=== PATIENT | female | born 1945 | race Caucasian/White ===

== ENCOUNTER → 2017-11-28 | Outpatient (CLI) | payer MEDICARE ==
[~2017-11-28] MED LIST: AMIT25 PO; AMIT75; AMLO5 PO; Ativan1 MG SL; Azor 10-20 MG1 EACH; Bactrim Ds Tab1 EACH PO; CALCA500CH PO; CALCIUM 1,0001 EACH PO; CEPH500 PO; CONEST.625 PO; CONEST.9; CYCL10; CYCL10 PO; DICL75ER PO; EPIPEN 2-P0.3 MG/0.3 IM; GABA600; HYDACE5 PO; IPRA.03NI; ISOD40ER; ISOD40ER PO; ISOMON30 PO; ISOSORBIDE MONONITRATE PO; LANS15EC PO; LAVAP17G PO; LEVO750 PO; LORA1 PO; METCAR500; METCAR500 PO; METO25 PO; MYRBETRIQ50 MG PO; NAPR220 PO; Nitrostat0.4 MG SL; OXYACE5T PO; PROACE100 PO; Prinivil10 MG PO; Pyridium200 MG PO; SIMV10 PO; Simvastatin20 MG PO; TOPI25 PO; TOPI50 PO; TRAM50; ZOLP5; ZOLP5 PO
== END | disposition home or self-care (01) ==
LOC: LAB 15:00
DX: R30.9 Painful micturition, unspecified (principal)
CPT/HCPCS: 87077; 87086; 87186

== ENCOUNTER 2017-11-30 12:47 | Emergency (ER) | payer MEDICARE ==
[~2017-11-30] VITALS: Ht 172.7 cm; Wt 73.5 kg
[~2017-11-30 12:47] MED LIST changes: -Bactrim Ds Tab1 EACH PO; -CONEST.625 PO; -GABA600; -ISOD40ER; -ISOD40ER PO; -TRAM50; -ZOLP5
[2017-11-30 15:25] LABS: BASOPHILS ABSOLUTE AUTO 0.04 K/mm3 (0.00-0.23); BASOPHILS PERCENT AUTO 1 % (0-2); EOSINOPHILS ABSOLUTE AUTO 0.36 K/mm3 (0.00-0.68); EOSINOPHILS PERCENT AUTO 5 % (0-6); Hematocrit 41.4 % (33.0-51.0); Hemoglobin 14.1 g/dL (11.5-16.0); IMMATURE GRAN ABSOLUTE AUTO 0.01 K/mm3 (0.00-0.10); IMMATURE GRAN PERCENT AUTO 0 % (0-1); LYMPHOCYTES ABSOLUTE AUTO 1.76 K/mm3 (0.84-5.20); LYMPHOCYTES PERCENT AUTO 25 % (21-46); MONOCYTES ABSOLUTE AUTO 0.57 K/mm3 (0.16-1.47); MONOCYTES PERCENT AUTO 8 % (4-13); Mean Corpuscular HGB 31.4 pg (26.0-34.0); Mean Corpuscular HGB Conc 34.1 g/dL (31.5-36.5); Mean Corpuscular Volume 92 fL (80-100); NEUTROPHILS ABSOLUTE AUTO 4.22 K/mm3 (1.96-9.15); NEUTROPHILS PERCENT AUTO 61 % (41-73); Platelet Count 192 K/mm3 (150-400); RDW Coefficient Variation 11.9 % (11.7-14.2); RDW Standard Deviation 40.4 fL (35.1-46.3); Red Blood Cell Count 4.49 M/mm3 (3.80-5.20); White Blood Cell Count 6.96 K/mm3 (4.00-11.30)
[2017-11-30 15:48] LABS: Alanine Aminotransfer (ALT/SGP 23 U/L (12-78); Albumin, Blood 3.4 g/dL (3.4-5.0); Albumin/Globulin Ratio 0.9 (0.8-1.8); Alk Phos 91 U/L (50-136); Anion Gap 6 mmol/L (6-16); Aspartate Aminotrans (AST/SGOT 24 U/L (12-37); Bilirubin, Total 0.6 mg/dL (0.1-1.0); Blood Urea Nitrogen 17 mg/dL (8-24); Bun/Creatinine Ratio 21.4 (12.0-20.0); CO2, Blood 27 mmol/L (21-32); Calcium, Blood 8.6 mg/dL (8.5-10.1); Chloride, Blood 106 mmol/L (98-108); Globulin, Blood 3.8 g/dL (2.2-4.0); Glomerular Filtration Rate >60 (60-); Glucose, Blood 84 mg/dL (70-99); Potassium, Blood 4.1 mmol/L (3.5-5.5); Sodium, Blood 139 mmol/L (136-145); Total Protein, Blood 7.2 g/dL (6.4-8.2)
[2017-11-30] MEDS ORDERED: Bactrim Ds Tab1 EACH PO (16:01)
== END 2017-11-30 17:17 | disposition home or self-care (01) ==
LOC: ER 12:47
PROVIDERS: Emergency Medicine
DX: N39.0 Urinary tract infection, site not specified (principal); M79.604 Pain in right leg; Z91.038 Other insect allergy status; Z88.1 Allergy status to other antibiotic agents; Z88.5 Allergy status to narcotic agent; Z88.8 Allergy status to other drugs, medicaments and biological substances; Z91.048 Other nonmedicinal substance allergy status; Z79.899 Other long term (current) drug therapy; Z87.891 Personal history of nicotine dependence
CPT/HCPCS: 36415; 71046; 80053; 83605; 85025; 87040; 96361; 96374; 99283; J0696; J7030

== ENCOUNTER 2018-01-15 09:05 | Day surgery (SDC) | payer MEDICARE ==
[~2018-01-15] VITALS: Ht 172.7 cm; Wt 73.5 kg
[~2018-01-15 09:05] MED LIST changes: +Bactrim Ds Tab1 EACH PO
[2018-01-15] MEDS ORDERED: GABA600 (11:41)
[2018-01-15] MEDS ORDERED: ISOD40ER (11:41)
[2018-01-15] MEDS ORDERED: ZOLP5 (11:41)
[2018-01-15] MEDS ORDERED: TRAM50 (11:43)
== END 2018-01-15 13:10 | disposition home or self-care (01) ==
LOC: ORSCSDS 09:05
PROVIDERS: Surgery
PROC: 0DB48ZX Excision of Esophagogastric Junction, Via Natural or Artificial Opening Endoscopic, Diagnostic (ICD-10-PCS; principal; 2018-01-15 10:30)
PROC: 0DB68ZX Excision of Stomach, Via Natural or Artificial Opening Endoscopic, Diagnostic (ICD-10-PCS; principal; 2018-01-15 10:30)
DX: K22.70 Barrett's esophagus without dysplasia (principal); Z80.0 Family history of malignant neoplasm of digestive organs; I10 Essential (primary) hypertension; E78.5 Hyperlipidemia, unspecified; I25.10 Atherosclerotic heart disease of native coronary artery without angina pectoris; K21.9 Gastro-esophageal reflux disease without esophagitis; M79.7 Fibromyalgia; Z87.891 Personal history of nicotine dependence; Z79.899 Other long term (current) drug therapy
CPT/HCPCS: 88305; 88342; J7120

== ENCOUNTER 2018-03-27 06:18 | Day surgery (SDC) | payer MEDICARE ==
[~2018-03-27] VITALS: Ht 172.7 cm; Wt 71.7 kg
[~2018-03-27 06:18] MED LIST changes: +GABA600; +ISOD40ER; +TRAM50; +ZOLP5
[2018-03-27] MEDS ORDERED: CONEST.625 PO (06:55)
[2018-03-27] MEDS ORDERED: ISOD40ER PO (06:57)
== END 2018-03-27 10:30 | disposition home or self-care (01) ==
LOC: ORSCSDS 06:18
PROVIDERS: Podiatrist Foot & Ankle Surgery
PROC: 0SQP0ZZ Repair Right Toe Phalangeal Joint, Open Approach (ICD-10-PCS; principal; 2018-03-27 07:30)
DX: M20.61 Acquired deformities of toe(s), unspecified, right foot (principal); I10 Essential (primary) hypertension; K21.9 Gastro-esophageal reflux disease without esophagitis; M79.7 Fibromyalgia; Z79.899 Other long term (current) drug therapy
CPT/HCPCS: 93005; 93010; J0171; J0690; J1100; J1885; J2250; J2405; J7120

== ENCOUNTER 2018-09-30 15:12 | Emergency (ER) | payer MEDICARE ==
[~2018-09-30] VITALS: Ht 172.7 cm; Wt 74.8 kg
[~2018-09-30 15:12] MED LIST changes: +CONEST.625 PO; -GABA600; +GABA600 PO; +ISOD40ER PO; -TRAM50; +TRAM50 PO
[2018-09-30] MEDS ORDERED: NITR.4SL SL (15:28)
[2018-09-30 16:29] LABS: BASOPHILS ABSOLUTE AUTO 0.04 K/mm3 (0.00-0.23); BASOPHILS PERCENT AUTO 1 % (0-2); EOSINOPHILS ABSOLUTE AUTO 0.17 K/mm3 (0.00-0.68); EOSINOPHILS PERCENT AUTO 2 % (0-6); Hematocrit 46.2 % (33.0-51.0); IMMATURE GRAN ABSOLUTE AUTO 0.01 K/mm3 (0.00-0.10); IMMATURE GRAN PERCENT AUTO 0 % (0-1); LYMPHOCYTES ABSOLUTE AUTO 1.16 K/mm3 (0.84-5.20); LYMPHOCYTES PERCENT AUTO 13 % (21-46); MONOCYTES ABSOLUTE AUTO 0.76 K/mm3 (0.16-1.47); MONOCYTES PERCENT AUTO 9 % (4-13); Mean Corpuscular HGB 32.1 pg (26.0-34.0); Mean Corpuscular HGB Conc 34.6 g/dL (31.5-36.5); Mean Corpuscular Volume 93 fL (80-100); Mean Platelet Volume 10.6 fL (9.1-12.4); NEUTROPHILS PERCENT AUTO 76 % (41-73); Platelet Count 215 K/mm3 (150-400); RDW Coefficient Variation 11.8 % (11.7-14.2); RDW Standard Deviation 40.8 fL (35.1-46.3); Red Blood Cell Count 4.98 M/mm3 (3.80-5.20); White Blood Cell Count 8.84 K/mm3 (4.00-11.30)
[2018-09-30 16:47] LABS: Alanine Aminotransfer (ALT/SGP 16 U/L (12-78); Albumin, Blood 3.5 g/dL (3.4-5.0); Albumin/Globulin Ratio 0.9 (0.8-1.8); Alk Phos 99 U/L (50-136); Anion Gap 6 mmol/L (6-16); Aspartate Aminotrans (AST/SGOT 17 U/L (12-37); Bilirubin, Total 0.7 mg/dL (0.1-1.0); Blood Urea Nitrogen 15 mg/dL (8-24); Bun/Creatinine Ratio 18.5 (12.0-20.0); CO2, Blood 27 mmol/L (21-32); Calcium, Blood 8.5 mg/dL (8.5-10.1); Chloride, Blood 108 mmol/L (98-108); Creatinine, Blood 0.81 mg/dL (0.40-1.00); Globulin, Blood 3.9 g/dL (2.2-4.0); Glomerular Filtration Rate >60 (60-); Glucose, Blood 111 mg/dL (70-99); Potassium, Blood 3.9 mmol/L (3.5-5.5); Sodium, Blood 141 mmol/L (136-145); Total Protein, Blood 7.4 g/dL (6.4-8.2)
[2018-09-30] MEDS ORDERED: BELPTAB PO (17:24)
[2018-09-30] MEDS ORDERED: Zofran8 MG PO (17:24)
== END 2018-09-30 17:45 | disposition home or self-care (01) ==
LOC: ER 15:12
PROVIDERS: Emergency Medicine
DX: K92.1 Melena (principal); R11.10 Vomiting, unspecified; R19.7 Diarrhea, unspecified; Z88.8 Allergy status to other drugs, medicaments and biological substances; Z88.6 Allergy status to analgesic agent; Z91.030 Bee allergy status; Z88.5 Allergy status to narcotic agent; Z79.899 Other long term (current) drug therapy
CPT/HCPCS: 36415; 80053; 83690; 85025; 96361; 96372; 96374; 96375; 99284-25; J0500; J2405; J3010; J7120

== ENCOUNTER → 2018-11-04 | Outpatient (CLI) | payer MEDICARE ==
[~2018-11-04] MED LIST changes: +BELPTAB PO; +NITR.4SL SL; +Zofran8 MG PO
== END | disposition home or self-care (01) ==
LOC: LAB 18:04 → LAB SHORT 18:04
DX: R30.9 Painful micturition, unspecified (principal)
CPT/HCPCS: 87077; 87086; 87186

== ENCOUNTER 2020-03-16 07:54 | Day surgery (SDC) | payer MEDICARE, OTHER ==
[~2020-03-16 07:54] MED LIST changes: +Amlodipine Besy10 MG PO; +Isosorbide Mono60 MG PO; +MYRBETRIQ50 MG; +Robaxin-750750 MG PO
== END 2020-03-16 10:15 | disposition home or self-care (01) ==
LOC: ORSCSDS 07:54
PROVIDERS: Surgery
PROC: 0DB78ZX Excision of Stomach, Pylorus, Via Natural or Artificial Opening Endoscopic, Diagnostic (ICD-10-PCS; principal; 2020-03-16 09:15)
PROC: 0DB58ZX Excision of Esophagus, Via Natural or Artificial Opening Endoscopic, Diagnostic (ICD-10-PCS; principal; 2020-03-16 09:15)
PROC: 0DJD8ZZ Inspection of Lower Intestinal Tract, Via Natural or Artificial Opening Endoscopic (ICD-10-PCS; principal; 2020-03-16 09:15)
DX: Z87.19 Personal history of other diseases of the digestive system (principal); K22.70 Barrett's esophagus without dysplasia; Z12.11 Encounter for screening for malignant neoplasm of colon; Z80.0 Family history of malignant neoplasm of digestive organs; K64.8 Other hemorrhoids; Z87.891 Personal history of nicotine dependence; Z79.899 Other long term (current) drug therapy; E78.5 Hyperlipidemia, unspecified; Z86.73 Personal history of transient ischemic attack (TIA), and cerebral infarction without residual deficits
CPT/HCPCS: 43239; G0105; 88305; 88342; J2704; J7120

== ENCOUNTER 2020-06-26 10:26 | Day surgery (SDC) | payer MEDICARE, OTHER ==
[~2020-06-26] VITALS: Ht 172.7 cm; Wt 76.3 kg
--- NOTE | 2020-06-26 11:35 | NUR ---
PT STARTED HAVING CHEST PRESSURE, DR GONZALEZ NOTIFIED ORDER RECEIVED FOR NITRO SL. PT CHEST PRESSURE GONE AT PRESENT TIME, NO NITRO GIVEN.
[2020-06-26] MEDS ORDERED: CLOP75 PO (14:23)
[2020-06-26] MEDS ORDERED: Aspir 8181 MG PO (14:23)
--- NOTE | 2020-06-26 14:59 | NUR ---
PT HAVING CHEST PAIN 10/10, NITRO GIVEN PAIN RELIEVED. NOTIFIED
--- NOTE | 2020-06-26 15:32 | NUR ---
SUBLINGUAL NITRO 0.4MG GIVEN FOR CHEST PAIN. DR. ALFONSO PRESENT.
--- NOTE | 2020-06-26 16:42 | NUR ---
DISCHARGE GONE OVER WITH PT AND SPOUSE. BOTH VERBALIZE UNDERSTANDING OF INSTRUCTIONS. SALINE LOCK OUT WITH CATHETER INTACT. PRESSURE DRESSING APPLIED. PT GETTING DRESSED AT THIS TIME.
--- NOTE | 2020-06-26 16:57 | NUR ---
PT DRESSED RIGHT RADIAL SITE CLEANSED AND CLOTH DOT PLACED. ARM SLING PLACED. PT TO PRIVATE VEHICLE VIA W/C WITH ONE STAFF.
== END 2020-06-26 16:15 | disposition home or self-care (01) ==
LOC: MHTC 10:26
PROC: 4A023N7 Measurement of Cardiac Sampling and Pressure, Left Heart, Percutaneous Approach (ICD-10-PCS; principal; 2020-06-26)
PROC: B201YZZ Plain Radiography of Multiple Coronary Arteries using Other Contrast (ICD-10-PCS; principal; 2020-06-26)
DX: I25.111 Atherosclerotic heart disease of native coronary artery with angina pectoris with documented spasm (principal); I10 Essential (primary) hypertension; Z79.82 Long term (current) use of aspirin; Z79.899 Other long term (current) drug therapy; Z87.891 Personal history of nicotine dependence; Z88.5 Allergy status to narcotic agent; Z88.0 Allergy status to penicillin; Z88.8 Allergy status to other drugs, medicaments and biological substances; Z91.030 Bee allergy status; Z91.038 Other insect allergy status; I27.20 Pulmonary hypertension, unspecified
CPT/HCPCS: 76937; 85347; 93005; 93010; 93458; 93571; 99152; 99153; C1725; C1769; C1874; C1887; C1894; C9600; J1644; J2250; J3010; J7030; J7050; Q9967

== ENCOUNTER 2020-07-28 07:23 | Day surgery (SDC) | payer MEDICARE, OTHER ==
[~2020-07-28 07:23] MED LIST changes: -Amlodipine Besy10 MG PO; +Aspir 8181 MG PO; +CLOP75 PO; +ISOSORBIDE MONO60 MG; -Isosorbide Mono60 MG PO; +RANO500T PO; +ROSU10TA; -Simvastatin20 MG PO
--- NOTE | 2020-07-28 13:47 | NUR ---
3mL AIR REMOVED FROM TR BAND. NO BLEEDING, OOZING OR HEMATOMA NOTED. [place] DENIES PAIN. WILL CONTINUE TO MONITOR. VSS
--- NOTE | 2020-07-28 13:50 | NUR ---
3mL MORE RELEASED FROM TR BAND. NO BLEEDING, OOZING ORE HEMATOMA NOTED. PT DENIES PAIN. VSS. WILL CONTINUE TO MONITOR.
--- NOTE | 2020-07-28 14:13 | NUR ---
ALL RELEASED FROM TR BAND. NO BLEEDING, OOZING OR HEMATOMA NOTED. VSS. PT DENIES PAIN. WILL CONTINUE TO MONITOR.
--- NOTE | 2020-07-28 14:42 | NUR ---
MD AT BEDSIDE EXPLAINING TO PT AND FAMILY RESULTS OF PROCEDURE. MD ANSWERED ALL QUESTIONS AND CONCERNS THAT PT AND FAMILY HAD.
[2020-07-28] MEDS ORDERED: Adalat Cc30 MG PO (15:05)
--- NOTE | 2020-07-28 15:23 | NUR ---
PT AMBULATED TO RESTROOM AND DRESSED SELF WITH NO COMPLICATIONS. TR BAND REMOVED SITE CLEANED AND CLOTH DOT DRESSING APPLIED TO ACCESS. WHITE BOARD PLACED BACK ON ARM. NO BLEEDING, OOZING OR HEAMTOMA NOTED. VSS. IV DCD WITH CATH INTACT. PT AND FAMILY BOTH STATE THEIR UNDERSTANDING OF DC AND SITE CARE INSTRUCTIONS AND DENY ANY QUESTIONS OR CONCERNS. PT PROVIDED WITH NEW MEDICATION LIST WITH NEW MEDICATION LISTED AND CHANGES TO AMLODIPINE NOTED. PT TAKEN TO FRONT VIA WHEELCHAIR WHERE WAS WAITING WITH CAR.
--- NOTE | 2020-07-28 15:30 | NUR ---
NEW MEDICATION NIFEDIPINE 30MG PO QD #30 1 REFILL CALLED INTO [facility] PER PT REQUEST.
== END 2020-07-28 16:42 | disposition home or self-care (01) ==
LOC: MHTC 07:23
PROC: 027034Z Dilation of Coronary Artery, One Artery with Drug-eluting Intraluminal Device, Percutaneous Approach (ICD-10-PCS; principal; 2020-07-28)
PROC: B2111ZZ Fluoroscopy of Multiple Coronary Arteries using Low Osmolar Contrast (ICD-10-PCS; principal; 2020-07-28)
DX: I25.111 Atherosclerotic heart disease of native coronary artery with angina pectoris with documented spasm (principal); I10 Essential (primary) hypertension; E78.5 Hyperlipidemia, unspecified; M79.7 Fibromyalgia; H26.9 Unspecified cataract; G43.909 Migraine, unspecified, not intractable, without status migrainosus; Z86.73 Personal history of transient ischemic attack (TIA), and cerebral infarction without residual deficits; Z79.02 Long term (current) use of antithrombotics/antiplatelets; Z79.899 Other long term (current) drug therapy; Z87.891 Personal history of nicotine dependence; Z88.1 Allergy status to other antibiotic agents; Z88.5 Allergy status to narcotic agent; Z88.8 Allergy status to other drugs, medicaments and biological substances; Z91.030 Bee allergy status; Z91.038 Other insect allergy status; Z91.048 Other nonmedicinal substance allergy status
CPT/HCPCS: 76937; 85347; 92921; 93454; 99152; 99153; C1725; C1769; C1874; C1887; C9600; J1644; J2250; J3010; J7030; J7050; Q9967

== ENCOUNTER 2020-10-20 12:45 | Emergency (ER) | payer MEDICARE, OTHER ==
[~2020-10-20] VITALS: Ht 170.2 cm; Wt 77.1 kg
[~2020-10-20 12:45] MED LIST changes: +Adalat Cc30 MG PO
[2020-10-20 14:16] LABS: BASOPHILS ABSOLUTE AUTO 0.03 K/mm3 (0.00-0.23); BASOPHILS PERCENT AUTO 0 % (0-2); EOSINOPHILS ABSOLUTE AUTO 0.13 K/mm3 (0.00-0.68); EOSINOPHILS PERCENT AUTO 2 % (0-6); Hematocrit 46.5 % (33.0-51.0); Hemoglobin 15.4 g/dL (11.5-16.0); IMMATURE GRAN ABSOLUTE AUTO 0.02 K/mm3 (0.00-0.10); IMMATURE GRAN PERCENT AUTO 0 % (0-1); LYMPHOCYTES ABSOLUTE AUTO 1.62 K/mm3 (0.84-5.20); LYMPHOCYTES PERCENT AUTO 24 % (21-46); MONOCYTES PERCENT AUTO 10 % (4-13); Mean Corpuscular HGB 30.7 pg (26.0-34.0); Mean Corpuscular HGB Conc 33.1 g/dL (31.5-36.5); Mean Corpuscular Volume 93 fL (80-100); Mean Platelet Volume 10.1 fL (9.1-12.4); NEUTROPHILS PERCENT AUTO 63 % (41-73); Platelet Count 221 K/mm3 (150-400); RDW Coefficient Variation 12.1 % (11.7-14.2); RDW Standard Deviation 41.5 fL (35.1-46.3); Red Blood Cell Count 5.01 M/mm3 (3.80-5.20)
[2020-10-20] MEDS ORDERED: VERA80 PO (14:18)
[2020-10-20 14:27] LABS: Alanine Aminotransfer (ALT/SGP 66 U/L (12-78); Albumin, Blood 3.6 g/dL (3.4-5.0); Albumin/Globulin Ratio 0.9 (0.8-1.8); Alk Phos 111 U/L (50-136); Anion Gap 8 mmol/L (6-16); Aspartate Aminotrans (AST/SGOT 51 U/L (12-37); Bilirubin, Total 0.8 mg/dL (0.1-1.0); Blood Urea Nitrogen 15 mg/dL (8-24); Bun/Creatinine Ratio 18.4 (12.0-20.0); CO2, Blood 23 mmol/L (21-32); Calcium, Blood 9.3 mg/dL (8.5-10.1); Chloride, Blood 112 mmol/L (98-108); Creatinine, Blood 0.82 mg/dL (0.40-1.00); Globulin, Blood 3.8 g/dL (2.2-4.0); Glomerular Filtration Rate >60 (60-); Glucose, Blood 93 mg/dL (70-99); Potassium, Blood 4.4 mmol/L (3.5-5.5); Sodium, Blood 143 mmol/L (136-145); Total Protein, Blood 7.4 g/dL (6.4-8.2)
[2020-10-20] MEDS ORDERED: CIPR500 PO (15:51)
[2020-10-20] MEDS ORDERED: Flagyl500 MG PO (15:51)
== END 2020-10-20 16:19 | disposition home or self-care (01) ==
LOC: ER 12:45
PROVIDERS: Physician Assistant
DX: K52.9 Noninfective gastroenteritis and colitis, unspecified (principal); Z79.899 Other long term (current) drug therapy; Z79.02 Long term (current) use of antithrombotics/antiplatelets; Z91.030 Bee allergy status; Z88.5 Allergy status to narcotic agent; Z88.8 Allergy status to other drugs, medicaments and biological substances; Z91.09 Other allergy status, other than to drugs and biological substances; Z88.6 Allergy status to analgesic agent; Z87.891 Personal history of nicotine dependence
CPT/HCPCS: 36415; 74177; 80053; 83690; 85025; 99284-25; A9270; Q9967

== ENCOUNTER → 2021-08-20 | Outpatient (CLI) | payer MEDICARE, OTHER ==
[~2021-08-20] MED LIST changes: +CIPR500 PO; +Flagyl500 MG PO; +VERA80 PO
== END ==
LOC: LAB SHORT 15:49 → LAB 15:49
DX: D48.5 Neoplasm of uncertain behavior of skin (principal)
CPT/HCPCS: 88305

== ENCOUNTER 2022-04-02 12:25 | Day surgery (SDC) | payer MEDICARE, OTHER ==
[~2022-04-02] VITALS: Ht 170.2 cm; Wt 75.2 kg
--- NOTE | 2022-04-02 14:34 | NUR ---
04/02/22 1434 Zita Gilmore HISTORY, CHART, MEDICATIONS AND ALLERGIES REVIEWED BEFORE START OF PROCEDURE. PATIENT CONFIRMS NPO STATUS AND AGREES WITH SCHEDULED PROCEDURE. 3-LEAD EKG REVIEWED WITH PHYSICIAN PRIOR TO START OF PROCEDURE. MONITOR INTACT WITH CONTINUOUS PULSE OXIMETRY,CAPNOGRAPHY, 3-LEAD EKG, INTERMITTENT BP. SUPPLEMENTAL O2 TO BE TITRATED THROUGHOUT PROCEDURE TO MAINTAIN O2 SATURATION ABOVE 90%. PATIENT DETERMINED TO BE ASA APPROPRIATE FOR PROPOFOL SEDATION PRIOR TO START OF PROCEDURE BY DR. DU
--- NOTE | 2022-04-02 15:27 | NUR ---
RECIEVED PATIENT AND REPORT VSS
== END 2022-04-02 23:56 | disposition home or self-care (01) ==
LOC: ORSCMMR 12:25 → ORD 14:00 → ORSCMMR 14:00
PROVIDERS: Surgery
PROC: 0DB78ZX Excision of Stomach, Pylorus, Via Natural or Artificial Opening Endoscopic, Diagnostic (ICD-10-PCS; principal; 2022-04-02 14:00)
PROC: 0DB48ZX Excision of Esophagogastric Junction, Via Natural or Artificial Opening Endoscopic, Diagnostic (ICD-10-PCS; principal; 2022-04-02 14:00)
PROC: 0DJD8ZZ Inspection of Lower Intestinal Tract, Via Natural or Artificial Opening Endoscopic (ICD-10-PCS; principal; 2022-04-02 14:00)
DX: K21.9 Gastro-esophageal reflux disease without esophagitis (principal); R19.4 Change in bowel habit; Z80.0 Family history of malignant neoplasm of digestive organs; Z87.19 Personal history of other diseases of the digestive system; I10 Essential (primary) hypertension; E78.5 Hyperlipidemia, unspecified; K58.1 Irritable bowel syndrome with constipation; Z86.73 Personal history of transient ischemic attack (TIA), and cerebral infarction without residual deficits; M79.7 Fibromyalgia; Z79.899 Other long term (current) drug therapy; Z79.02 Long term (current) use of antithrombotics/antiplatelets; Z87.891 Personal history of nicotine dependence
CPT/HCPCS: 88305; 88312; 88342; J2704; J7120

== ENCOUNTER 2022-12-31 06:49 | Day surgery (SDC) | payer MEDICARE, OTHER ==
[~2022-12-31] VITALS: Ht 170.2 cm; Wt 80.8 kg
[2022-12-31] VITALS (7 sets, daily range): BP systolic 116–143; BP diastolic 55–77
[~2022-12-31 06:49] MED LIST changes: +AMLO10 PO; +DICLOFENAC SOD100 GM TOP; +EPIPEN 2-P0.3 MG/0.1 IM; -EPIPEN 2-P0.3 MG/0.3 IM; +GABA300 PO; +Isosorbide Mono30 MG PO; +METO25ER PO; +ROSU10TA PO
[2022-12-31 07:45] LABS: BASOPHILS ABSOLUTE AUTO 0.05 K/mm3 (0.00-0.23); BASOPHILS PERCENT AUTO 1 % (0-2); EOSINOPHILS ABSOLUTE AUTO 0.52 K/mm3 (0.00-0.68); EOSINOPHILS PERCENT AUTO 7 % (0-6); Hematocrit 42.3 % (33.0-51.0); Hemoglobin 14.7 g/dL (11.5-16.0); IMMATURE GRAN ABSOLUTE AUTO 0.02 K/mm3 (0.00-0.10); IMMATURE GRAN PERCENT AUTO 0 % (0-1); LYMPHOCYTES ABSOLUTE AUTO 1.73 K/mm3 (0.84-5.20); LYMPHOCYTES PERCENT AUTO 25 % (21-46); MONOCYTES ABSOLUTE AUTO 0.65 K/mm3 (0.16-1.47); MONOCYTES PERCENT AUTO 9 % (4-13); Mean Corpuscular HGB 31.3 pg (26.0-34.0); Mean Corpuscular HGB Conc 34.8 g/dL (31.5-36.5); Mean Corpuscular Volume 90 fL (80-100); NEUTROPHILS ABSOLUTE AUTO 4.06 K/mm3 (1.96-9.15); NEUTROPHILS PERCENT AUTO 58 % (41-73); Platelet Count 226 K/mm3 (150-400); RDW Coefficient Variation 12.2 % (11.7-14.2); RDW Standard Deviation 39.9 fL (35.1-46.3); White Blood Cell Count 7.03 K/mm3 (4.00-11.30)
[2022-12-31 07:56] LABS: International Normalized Ratio 0.98; Prothrombin Time Results 10.3 Sec (9.7-11.5)
[2022-12-31 08:00] LABS: Bun/Creatinine Ratio 25.4 (12.0-20.0); Calcium, Blood 9.4 mg/dL (8.5-10.1); Creatinine, Blood 0.79 mg/dL (0.40-1.00); Potassium, Blood 3.9 mmol/L (3.5-5.5)
--- NOTE | 2022-12-31 10:00 | NUR ---
INITIAL 2 CC OF AIR REMOVED FROM R RADIAL TR BAND. SITE C/D/I, SOFT/NONTENDER, NO EVIDENCE OF HEMATOMA. PATIENT DENYING ANY CP. VSS ON ROOM AIR. PATIENT SITTING UP IN RECLIONER, TOLERATING PO INTAKE WELL.
--- NOTE | 2022-12-31 10:53 | NUR ---
DISCAHRGE INSTRUCTIONS REVIEWED WITH PATIENT AND SPOUSE AT BEDSIDE. NO MEDICATION CHANGES, FOLLOW UP APPOINTMENT SCHEDULED. ALL QUESTIONS WERE ANSWERED. R RADIAL SITE C/D/I, SOFT/NONTENDER, NO EVIDENCE OF HEMATOMA. VSS ON ROOM AIR.
--- NOTE | 2022-12-31 11:06 | NUR ---
TR BAND REMOVED FROM R RADIAL WRIST. SITE C/D/I, SOFT/NONTENDER, NO EVIDENCE OF HEMATOMA. CLOTH DOT PLACED OVER R RADIAL SITE. ARM BOARD IN PLACE. PATIENT DENYING ANY CP. VSS ON ROOM AIR. PIV REMOVED WITHOUT DIFFICULTY, CATHETER INTACT.
--- NOTE | 2022-12-31 11:15 | NUR ---
PATIENT DISCHARGED AT THIS TIME. PATIENT BELONGINGS AND DISCHARGE PAPERWORK LEFT WITH PATIENT. R RADIAL SITE C/D/I, SOFT/NONTENDER, NO EVIDENCE OF HEMATOMA. VSS ON ROOM AIR. PATIENT DISCHARGED HOME, WITH ABLE TO PROVIDE TRANSPORTATION.
== END 2022-12-31 11:15 | disposition home or self-care (01) ==
LOC: MHTC 06:49
PROVIDERS: Internal Medicine Interventional Cardiology
DX: I25.111 Atherosclerotic heart disease of native coronary artery with angina pectoris with documented spasm (principal); E78.5 Hyperlipidemia, unspecified; I10 Essential (primary) hypertension; R00.2 Palpitations; Z86.73 Personal history of transient ischemic attack (TIA), and cerebral infarction without residual deficits; Z79.02 Long term (current) use of antithrombotics/antiplatelets; Z88.5 Allergy status to narcotic agent
CPT/HCPCS: 76937; 80048; 85025; 85610; 93458; 99152; 99153; C1769; C1887; C1894; J1644; J2250; J3010; J7030; J7050; Q9967

== ENCOUNTER 2023-03-11 13:17 | Emergency (ER) | payer MEDICARE, OTHER ==
[~2023-03-11] VITALS: Ht 170.2 cm; Wt 72.6 kg
[2023-03-11 14:01] LABS: BASOPHILS ABSOLUTE AUTO 0.04 K/mm3 (0.00-0.23); BASOPHILS PERCENT AUTO 1 % (0-2); EOSINOPHILS ABSOLUTE AUTO 0.34 K/mm3 (0.00-0.68); EOSINOPHILS PERCENT AUTO 5 % (0-6); Hematocrit 40.2 % (33.0-51.0); Hemoglobin 13.9 g/dL (11.5-16.0); IMMATURE GRAN ABSOLUTE AUTO 0.02 K/mm3 (0.00-0.10); IMMATURE GRAN PERCENT AUTO 0 % (0-1); LYMPHOCYTES ABSOLUTE AUTO 1.29 K/mm3 (0.84-5.20); LYMPHOCYTES PERCENT AUTO 20 % (21-46); MONOCYTES ABSOLUTE AUTO 0.63 K/mm3 (0.16-1.47); MONOCYTES PERCENT AUTO 10 % (4-13); Mean Corpuscular HGB 31.4 pg (26.0-34.0); Mean Corpuscular HGB Conc 34.6 g/dL (31.5-36.5); Mean Corpuscular Volume 91 fL (80-100); Mean Platelet Volume 10.5 fL (9.1-12.4); NEUTROPHILS ABSOLUTE AUTO 4.31 K/mm3 (1.96-9.15); NEUTROPHILS PERCENT AUTO 65 % (41-73); Platelet Count 226 K/mm3 (150-400); RDW Standard Deviation 40.3 fL (35.1-46.3); Red Blood Cell Count 4.43 M/mm3 (3.80-5.20); White Blood Cell Count 6.63 K/mm3 (4.00-11.30)
[2023-03-11 14:21] LABS: Albumin, Blood 3.4 g/dL (3.4-5.0); Albumin/Globulin Ratio 0.9 (0.8-1.8); Bilirubin, Total 0.6 mg/dL (0.1-1.0); Bun/Creatinine Ratio 24.2 (12.0-20.0); Calcium, Blood 9.3 mg/dL (8.5-10.1); Creatinine, Blood 0.83 mg/dL (0.40-1.00); Globulin, Blood 3.8 g/dL (2.2-4.0); Potassium, Blood 3.8 mmol/L (3.5-5.5); Total Protein, Blood 7.2 g/dL (6.4-8.2)
[2023-03-11] MEDS ORDERED: METOPROLOL SUCC25 MG PO (18:22)
[2023-03-11 18:30] VITALS: BP 148/82
== END 2023-03-11 18:56 | disposition home or self-care (01) ==
LOC: ER 13:17
PROVIDERS: Physician Assistant
DX: R00.2 Palpitations (principal); I20.1 Angina pectoris with documented spasm; Z91.030 Bee allergy status; Z88.0 Allergy status to penicillin; Z88.1 Allergy status to other antibiotic agents; Z88.6 Allergy status to analgesic agent; Z88.5 Allergy status to narcotic agent; Z88.8 Allergy status to other drugs, medicaments and biological substances; Z91.048 Other nonmedicinal substance allergy status; Z79.02 Long term (current) use of antithrombotics/antiplatelets; Z95.5 Presence of coronary angioplasty implant and graft
CPT/HCPCS: 71045; 80053; 83880; 84484; 85025; 93005; 93010; 99284-25

== ENCOUNTER → 2024-11-09 | Outpatient (CLI) | payer MEDICARE ==
[~2024-11-09] MED LIST changes: +Bentyl20 MG; +EZET10; +METOPROLOL SUCC25 MG PO; +ONDA4ODT
[2024-11-10 14:31] LABS: Campylobacter Sp Not Detected (NOT DETECT); Plesiomonas Shigelloides Not Detected (NOT DETECT); Salmonella Sp Not Detected (NOT DETECT); Vibrio Cholerae Not Detected (NOT DETECT); Vibrio Sp Not Detected (NOT DETECT); Yersinia Enterocolitica Not Detected (NOT DETECT)
[2024-11-10 14:32] LABS: Adenovirus F 40/41 Not Detected (NOT DETECT); Astrovirus Not Detected (NOT DETECT); Cryptosporidium Not Detected (NOT DETECT); Cyclospora Cayetanensis Not Detected (NOT DETECT); E. Coli O157 Not Detected (NOT DETECT); Entamoeba Histolytica Not Detected (NOT DETECT); Enteroaggregative E. coli-EAEC Not Detected (NOT DETECT); Enteropathogenic E. coli-EPEC Not Detected (NOT DETECT); Enterotoxigenic E. coli-ETEC Not Detected (NOT DETECT); Giardia Lamblia Not Detected (NOT DETECT); Norovirus GI/GII Not Detected (NOT DETECT); Rotavirus A Not Detected (NOT DETECT); Sapovirus Not Detected (NOT DETECT); Shiga Toxin-prod E. coli-STEC Not Detected (NOT DETECT); Shigella/Enteroin E. coli-EIEC Not Detected (NOT DETECT)
== END ==
LOC: LAB SHORT 17:00 → LAB 17:00 → LAB SHORT 11-10 11:22
PROVIDERS: Family Medicine
DX: R19.7 Diarrhea, unspecified (principal)
CPT/HCPCS: 87507

== ENCOUNTER 2024-12-10 12:55 | Day surgery (SDC) | payer MEDICARE, OTHER ==
[~2024-12-10] VITALS: Ht 172.7 cm; Wt 72.7 kg
[~2024-12-10 12:55] MED LIST changes: +Atropine Sulfate 0.1 MG/ML 10ML SYR ONE; -Bentyl20 MG; -EZET10; +Glycopyrrolate 0.2 MG/ML 1MLVIAL ONE; +Lactated Ringer's 1,000 ML IV ONE; +Lidocaine 2% 5 ML SDV ONE; +Lidocaine HCl/Pf 1% 5 ML VIAL ONE; +Methylene Blue 1% 100 MG/10 ML VIAL ONE; -ONDA4ODT; +Ondansetron HCl 2 MG / ML 2ML Vial ONE; +ePHEDrine Sulfate 50 MG/ML 1ML Injection ONE; +propofoL 50 ML IV ONE
[2024-12-10] MEDS ORDERED: EZET10 (13:13)
[2024-12-10] MEDS ORDERED: ONDA4ODT (13:13)
[2024-12-10] MEDS ORDERED: Bentyl20 MG (13:19)
[2024-12-10] MEDS ORDERED: Lactated Ringer's 1,000 ML IV ONE (13:47)
--- NOTE | 2024-12-10 14:06 | NUR ---
12/10/24 1406 Danelle Feliz HEADACHE RATING "3".
--- NOTE | 2024-12-10 15:44 | NUR ---
12/10/24 1544 Danelle Feliz PT. DENIES HAVING ANY PAIN. HEADACHE GONE. NO PAIN IN "ESOPHAGUS" PT. STATES LIKE RIGHT AFTER WAKING UP IN ENDO ROOM. SEE NOTES IN ENDO. PT. BP MORE ELEVATED THAN IN PREOP, OK PER DR. DE JESUS TO SEND PT. HOME.
--- NOTE | 2024-12-10 15:49 | NUR ---
12/10/24 1549 Danelle Feliz S 1455 PT. WOKE UP WITH C/O SHARP PAIN IN HER ESOPHAGUS. PT. HOLDING CHEST BUT DENIED IT FEELING LIKE ANGINA. PT. RATED IT A "20" WHEN ASKED TO RATE FROM 0-10. PT. ALSO ASKING FOR WATER. LISTENED TO PT. LUNGS WHICH WERE CLEAR. INSTRUCTED PT. TO TRY & SIT UP HIGHER IN BED. HOB ELEVATED. DR. DE JESUS IN ROOM 1457 & SAW PT.WITH PAIN. PT. GIVEN SOME ICE CHIPS & THEN PAIN STARTED EASING UP. VITALS WERE STABLE. 1505 PT. STATED "EASING UP" RATING "3". 1506 PT. STATED "GONE." PT. AGAIN SAID IT DIDN'T FEEL LIKE ANY ANGINA PAIN, SHE HAD VERBALIZED IT BEING IN HER ESOPHAGUS. INSTRUCTED PT. IT COULD BE SOME AIR THAT SHE NEEDED TO PASS OUT. PT. DIDN'T FEEL THE NEED TO BURP. PT. DESCRIBED IT "SHARP & PRESSURE." NO ORDERS GIVEN BY
[2024-12-10 15:54] VITALS: BP 173/61
[2024-12-10 16:23] LABS: C DIFFICILE DNA NEGATIVE (Negative)
== END 2024-12-10 15:39 | disposition home or self-care (01) ==
LOC: ORSCSDS 12:55
PROVIDERS: Internal Medicine Gastroenterology
PROC: 0DBE8ZX Excision of Large Intestine, Via Natural or Artificial Opening Endoscopic, Diagnostic (ICD-10-PCS; principal; 2024-12-10 14:45)
PROC: 0DBK8ZX Excision of Ascending Colon, Via Natural or Artificial Opening Endoscopic, Diagnostic (ICD-10-PCS; principal; 2024-12-10 14:45)
PROC: 0DBN8ZX Excision of Sigmoid Colon, Via Natural or Artificial Opening Endoscopic, Diagnostic (ICD-10-PCS; principal; 2024-12-10 14:45)
DX: R19.7 Diarrhea, unspecified (principal); K52.832 Lymphocytic colitis; D12.5 Benign neoplasm of sigmoid colon; I10 Essential (primary) hypertension; E78.00 Pure hypercholesterolemia, unspecified; E78.5 Hyperlipidemia, unspecified; Z86.73 Personal history of transient ischemic attack (TIA), and cerebral infarction without residual deficits; Z79.899 Other long term (current) drug therapy
CPT/HCPCS: 87493; 88305; J0461; J2003; J2405; J2704; J7120; Q9968